=== PATIENT | male | born 1955 | race Caucasian/White ===

== ENCOUNTER 2017-01-06 20:43 | Emergency (ER) | payer SELFPAY ==
[~2017-01-06] VITALS: Ht 170.2 cm; Wt 89.4 kg
[2017-01-06 21:14] VITALS: BP_SYST 168
--- NOTE | 2017-01-06 21:15 | NUR ---
Patient triaged and placed in waiting room. VSS and patient appears in no acute distress at this time. Accompanied by self, awaiting available bed, and MD notified of need for MSE.
--- NOTE | 2017-01-06 22:18 | NUR ---
CALLED PT TO BE PLACED IN BED AND NO ANSWER.
--- NOTE | 2017-01-06 22:42 | NUR ---
CALLED PT TO BE PLACED IN BED AND NO ANSWER.
--- NOTE | 2017-01-06 22:54 | NUR ---
CALLED PT TO BE PLACED IN BED FOR A THIRD TIME AND NO ANSWER. PT LWBS.
== END 2017-01-06 22:54 | disposition left against medical advice (07) ==
LOC: SED 20:43
DX: R21 Rash and other nonspecific skin eruption (principal)